=== PATIENT | female | born 1945 | race Caucasian/White ===

== ENCOUNTER → 2024-01-18 10:55 | Outpatient (REF) | payer OTHER, SELFPAY | LOC: RAD 10:55 | PROVIDERS: ATTENDING PHYSICIAN Internal Medicine | DX: R62.7 Adult failure to thrive (principal); I89.1 Lymphangitis | CPT/HCPCS: 71250 ==

== ENCOUNTER 2024-07-22 18:25 | Inpatient (IN) | payer OTHER, SELFPAY ==
[2024-07-22] VITALS (10 sets, daily range): BP systolic 101–167; BP diastolic 64–116; BMI 14.2
--- NOTE | 2024-07-22 14:56 | ED.GENMED ---
History of Present Illness
General
Chief Complaint: Facial Problem
Source: spouse
Exam Limitations: none
Time Seen by Provider: 07/22/24 13:31
Nursing documentation reviewed up to this point in time: agreed with
History of Present Illness
History of Present Illness:
The patient is an 78-year-old female brought in by her for disorientation and acute mental status change. Her reports she is generally well other than chronic lung disease. He reports that about 3 months ago she developed
trigeminal neuralgia in her left face. He reports she has never had this before and was evaluated and treated by neurology at [place]. He reports that initially she was started on a low-dose gabapentin without relief. He reports that this past
, which was 4 days ago, her left facial pain became severe and her neurologist started her on baclofen, as well as increased her Lamictal dose, and additionally restarted gabapentin 300 mg 3 times a day. He reports that since last night,
she has been extremely sleepy and disoriented. He reports she is barely able to walk. She is saying things that do not make sense and not eating or drinking. Her reports he is not sure if this is medication related or something else is
going on. The patient is mumbling and barely able to answer any simple questions or follow any commands. She appears cachectic.
Past History
Past History
ED Past Medical History: Other (Chronic lung disease)
ED Past Surgical History: Other
Social History
Tobacco: Non-smoker
Alcohol: None
Drug: None
Personal:
Living: with family
Employment: Other
Family History
Family History: Other
Review of Systems
Review of Systems
Allergies reviewed?: Yes
All Other Systems: ROS reviewed and negative except as documented in HPI and ROS
Constitutional: Reports fatigue
EENT: Reports other (Left-sided facial pain)
Respiratory: Reports no symptoms
Cardiac: Reports no symptoms
ABD/GI: Reports no symptoms
: Reports no symptoms
Musculoskeletal: Reports no symptoms
Skin: Reports no symptoms
Neurological: Reports other (Increased confusion and lethargy)
Endocrine: Reports no symptoms
Hematologic/Lymphatic: Reports no symptoms
Psychiatric: Reports other (Confused, less interactive)
Phy Exam
Physical Exam
Physical Exam:
Physical Exam
General: no apparent distress, lethargic, cachectic appearing, very sleepy, awakens to touch and then falls back to sleep
Neck: supple. no meningeal signs. Dry mucous membrane
Heart: s1/s2 regular rate and rhythm, no murmur. equal radial pulses.
Lungs: no acute respiratory distress. clear bilaterally
Abdomen: Soft, nontender
Neuro: alert, disoriented to place and time. At times is able to say her name. Face appears symmetric and moves all extremities equally
Skin: no rash
Psychiatric: well kept. Barely interactive
Extremities: no edema.
Course
Orders/Labs/Results
Orders:
Orders
07/22/24 14:13
Electrocardiogram (*1) Urgent
Reason for Study: Fatigue / Weakness
EKG- Treatment ONCE
07/22/24 14:15
CT Head W/o Iv Contrast Urgent
Comment:
Reason For Exam: MS change, disoriented
0.9% Sodium Chloride 500 ml [Nss] 500 ml IV BOLUS
07/22/24 14:52
Complete Blood Count/With Diff Urgent
Comprehensive Metabolic Panel Urgent
Lactic Acid Urgent
Lamictal [Lamotrigine (Lamictal)] [S] Urgent
Venous Blood Gas Urgent
%Oxygen/Room Air: 2L nasal oxugen
07/22/24 15:07
Urinalysis Reflex To Culture Urgent
Date Specimen was Collected: 07/22/24
Time Specimen was Collected: 15:04
Urine Microscopic Reflex Cult Urgent
Abnormal Lab Results
07/22/24 07/22/24
14:52 15:07
MCH 31.6 H pg
(27.0-31.0)
MCHC 32.9 L g/dL
(33.0-37.0)
Absolute Lymphs (auto) 0.9 L 10^3/uL
(1.2-3.4)
Lymphocytes % 16.7 L %
(20.5-51.1)
VBG pCO2 63 H mmHg
(35-48)
VBG HCO3 39.0 H mmol/L
(22-27)
Carbon Dioxide 39 H mmol/L
(22-30)
BUN 21 H mg/dl
(7-17)
Glucose 111 H mg/dl
(70-99)
Calcium 11.4 H mg/dl
(8.4-10.2)
Urine Ketones 1+ A
(Negative)
Urine Bacteria (Reflex) Few A
(Negative)
Urine Albumin (Reflex) 2+ A
(Neg - Trace)
07/22/24 14:52
07/22/24 14:52
Vital Signs
Initial and Last Documented VS:
Initial Vital Signs
Temp Pulse Resp BP Pulse Ox
98.9 F 90 22 147/92 95
07/22/24 13:03 07/22/24 13:03 07/22/24 13:03 07/22/24 13:03 07/22/24 13:03
Last Documented Vital Signs
Temp Pulse Resp BP Pulse Ox
98.9 F 87 31 167/88 100
07/22/24 13:03 07/22/24 16:10 07/22/24 16:10 07/22/24 16:10 07/22/24 16:10
MDM/Problems Addressed
Differential Diagnosis Includes:
Intracranial hemorrhage, hyponatremia, subclinical seizure, sedation from medication
MDM/Problems Addressed:
Patient presents with acute lethargy and confusion
Chronic conditions affecting care:
Lung condition
Acute Exacerbation and/or Progression of Chronic Illness:
Patient may have acute exacerbation of her lung condition causing high CO2 levels
*Radiology
Radiology exam reviewed: radiology read reviewed
*Pulse Oximetry
Patient hypoxic: no
*Heat Treat Operator Interpretation
Rate: normal
Interpretation: normal
Rhythm: sinus
*Critical Care Note
Total Time (30-74mins, 75-104mins- exclusive of procedures): Not Applicable
Data Reviewed
Review of Other/Old Records Reveals: Testing (Swallow and speech testing shows no significant abnormalities in 2021)
ED Attending Note
-
Portions of this chart may have been created with voice recognition software.� Occasional wrong word or��sound alike� substitutions may have occurred due to the inherent limitations of voice recognition software.
Discharge Plan
Departure
Patient Disposition: Admit
Date of Disposition: 07/22/24
Time of Disposition: 16:47
Admit to: Med/Surg
Presentation/result/management discussed w/ accepting MD/DO: Hospitalist
Patient with high blood pressure during this ER visit?: Yes
Condition: Fair
Covid-19: Not Applicable
Discharge Problem:
Acute alteration in mental status
Referrals:
Ishmael Colmenares MD [Family Provider] -
Interventions
Interventions:
*Risk Screen - Suicide Last Done: 07/22/24 13:17
*General Assessment Last Done: 07/22/24 13:42
*Neglect/Abuse Screening Last Done: 07/22/24 13:17
*ED COVID-19 Vaccine History Last Done: 07/22/24 13:42
ED- Neurological Assessment Last Done: 07/22/24 13:17
ED-Skin Assessment Last Done: 07/22/24 13:19
Discharge Date and Time
Print Language: BELARUSIAN
[2024-07-22 15:00] LABS: Venous Blood Gas B.E. 11.2 mmol/L (-4 to +4); Venous Blood Gas pCO2 63 mmHg (35-48); Venous Blood Gas pO2 38 mmHg (30-50)
[2024-07-22 15:04] LABS: % Basophils 0.6 % (0-2); % Eosinophils 0.2 % (0-6); % Immature Granulocytes 0.4 % (0-0.5); % Lymphocytes 16.7 % (20.5-51.1); % Monocytes 8.9 % (1.7-9.3); % Neutrophils 73.2 % (42.2-75.2); Absolute Lymphocytes 0.9 10^3/uL (1.2-3.4); Absolute Monocytes 0.5 10^3/uL (0.1-0.6); Absolute Neutrophils 3.9 10^3/uL (1.4-6.5); Hematocrit 44.4 % (37.0-47.0); Hemoglobin 14.6 g/dL (12.0-16.0); Mean Corp Hgb Conc. 32.9 g/dL (33.0-37.0); Mean Corpuscular Hgb 31.6 pg (27.0-31.0); Mean Corpuscular Volume 96.1 fL (81.0-99.0); Mean Platelet Volume 8.9 fL (7.4-10.4); Nucleated Red Blood Cells % 0 %; Platelet Count 238 10^3/uL (130-400); Red Blood Cell Count 4.62 10^6/uL (4.20-5.40); Red Cell Dist. Width 13.3 % (11.5-14.5); Venous Blood Gas O2 Therapy 2L nasal oxugen; White Blood Cell Count 5.3 10^3/uL (4.8-10.8)
[2024-07-22] MEDS: NSS 500 IV (15:05)
[2024-07-22 15:13] LABS: Lactic Acid 1.1 mmol/L (0.7-2.0)
[2024-07-22 15:15] LABS: ALT (SGPT) 28 U/L (0-35); AST (SGOT) 34 U/L (14-36); Albumin 4.5 g/dl (3.5-5.0); Alkaline Phosphatase 76 U/L (38-126); Blood Urea Nitrogen 21 mg/dl (7-17); Calcium 11.4 mg/dl (8.4-10.2); Carbon Dioxide 39 mmol/L (22-30); Chloride 99 mmol/L (98-107); Estimated Creatinine Clearance 43 ml/min; Glucose 111 mg/dl (70-99); Potassium 4.2 mmol/L (3.5-5.1); Sodium 141 mmol/L (135-145); Total Bilirubin 0.4 mg/dl (0.2-1.3); Total Protein 7.6 g/dl (6.3-8.2); eGFR > 60.00
[2024-07-22 15:17] LABS: Urine Albumin 2+ (Neg - Trace); Urine Bilirubin Negative (Negative); Urine Character Slightly Cloudy (Clear); Urine Color Yellow; Urine Glucose Negative (Negative); Urine Ketone 1+ (Negative); Urine Leukocyte Negative (Negative); Urine Nitrite Negative (Negative); Urine Occult Blood Negative (Negative); Urine Urobilinogen Negative (Neg - 1+)
--- NOTE | 2024-07-22 15:18 | EDRN ---
Pt more awake and alert at this time.
--- NOTE | 2024-07-22 15:22 | EDRN ---
Pt incontinent in diaper of very large amount of malodorous urine.
[2024-07-22 15:28] LABS: Urine Bacteria Few (Negative); Urine Red Blood Cell 0-2 /HPF (0-2); Urine White Cell 0-2 /HPF (0-5)
--- NOTE | 2024-07-22 16:52 | EDRN ---
Spouse and pt's friend have returned to room. Pt is awaiting to be admitted at this time.
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
--- NOTE | 2024-07-22 17:58 | HPS.HSE ---
Family Physician
-
Family Physician: Ishmael Colmenares
Chief Complaint
-
AMS
History of Present Illness
78-year-old female with a past medical history of lymphangioleiomyomatosis, pneumothorax, osteoporosis, COPD, hyperparathyroidism, osteoarthritis, and trigeminal neuralgia presents with altered mental status. Per , patient saw a neurologist
at [place], and was started her on gabapentin 300 mg 3 times a day on 07/20/2024. Since then, she has started becoming confused, not eating, not drinking, not talking. She has severe pain from her trigeminal neuralgia, which impairs her
ability to eat and take pills. does report that the confusion, lethargy, somnolence, and not talking normally occurred since starting the gabapentin. states that the starting dose of gabapentin was 300 mg 3 times a day. At that
time, Lamictal was also increased. Patient was initially on 150 mg in the morning, 100 at night. This was increased to 150 twice a day. Currently, patient denies pain. denies fever.
Medical History
Past Medical History
Past Medical History: Reports Other
Additional Past Medical History:
Lymphangioleiomyomatosis
Pneumothorax
Trigeminal neuralgia
Osteoporosis
COPD
Primary hyperparathyroidism
Left knee osteoarthritis
Past Surgical History: Reports Other
Additional Past Surgical History:
Pleurodesis
Social History
Tobacco: Non-smoker
Alcohol: Occasional
Drug: None
Personal:
Living: With Family
Family History
Family History: Not pertinent
Allergies / Home Medications
Allergies reflects when Allergies were last updated in [facility].
Home Medications with original date entered in [facility]
Allergy/Medication List:
Allergies
Allergy/AdvReac Type Severity Reaction Status Date / Time
No Known Allergies Allergy Unverified 07/22/24 13:02
Home Medications Table - record
�Medication �Instructions �Recorded �Confirmed
amitriptyline 10 mg tablet 10 mg PO HS 07/22/24 07/22/24
cholecalciferol (vitamin D3) 25 25 mcg PO DAILY 07/22/24 07/22/24
mcg (1,000 unit) tablet (Vitamin
D3)
gabapentin 300 mg capsule 300 mg PO TID 07/22/24 07/22/24
lamotrigine 100 mg tablet 150 mg PO BID 07/22/24 07/22/24
therapeutic multivitamin 1 tab PO DAILY 07/22/24 07/22/24
Review of Systems
-
History Source: Family
A 12 point ROS was completed and negative except as noted: Yes
Physical Exam
Vital Signs
Vital Signs
Temp Pulse Resp BP Pulse Ox
98.9 F 93 20 167/89 97
07/22/24 13:03 07/22/24 17:30 07/22/24 17:45 07/22/24 17:03 07/22/24 17:45
Physical Exam
General: No Apparent Distress
HEENT: NormoCephalic, Anicteric and Atraumatic
Respiratory: Clear
Cardiac: S1/S2
GI: Soft, Non Tender and Non Distended
Musculoskeletal: No Clubbing, No Cyanosis and No Edema
Skin: Warm and Dry
Neuro: Other (Somnolent, slow to respond, unable to provide history)
Psych: Calm
Laboratory Results
-
07/22/24 14:52
07/22/24 14:52
Laboratory Results
Lactic Acid 1.1 mmol/L (0.7-2.0) 07/22/24 14:52
Total Bilirubin 0.4 mg/dl (0.2-1.3) 07/22/24 14:52
AST 34 U/L (14-36) 07/22/24 14:52
ALT 28 U/L (0-35) 07/22/24 14:52
Alkaline Phosphatase 76 U/L (38-126) 07/22/24 14:52
Impression/Plan
-
HPI: 78-year-old female with a past medical history of lymphangioleiomyomatosis, pneumothorax, osteoporosis, COPD, hyperparathyroidism, osteoarthritis, and trigeminal neuralgia presents with altered mental status. Per , patient saw a
neurologist at [place], and was started her on gabapentin 300 mg 3 times a day on 07/20/2024. Since then, she has started becoming confused, not eating, not drinking, not talking. She has severe pain from her trigeminal neuralgia, which
impairs her ability to eat and take pills. does report that the confusion, lethargy, somnolence, and not talking normally occurred since starting the gabapentin. states that the starting dose of gabapentin was 300 mg 3 times a day.
At that time, Lamictal was also increased. Patient was initially on 150 mg in the morning, 100 mg at night. This was increased to 150 twice a day. Currently, patient denies pain. denies fever.
#Acute encephalopathy, suspect drug-induced from gabapentin
Head CT negative
Likely from starting gabapentin 300 mg 3 times daily on 07/20/2024
Hold gabapentin, check B12, check TSH/free T4, monitor
#Severe trigeminal neuralgia
Hold gabapentin for now secondary to encephalopathy
Continue Lamictal 150 mg twice a day
Continue amitriptyline
Consult neurology
#Dehydration
IV fluids
#Lymphangioleiomyomatosis
Status post pleurodesis, outpatient follow-up
#Left knee arthritis
Tylenol as needed
DVT prophylaxis� SQLovenox
DNR confirmed with upon admission
Total time spent to see the patient on the floor, examine the patient, review data and lab results, discuss treatment plan with patient, nursing staff around 65 minutes.
--- NOTE | 2024-07-22 18:44 | EDRN ---
No Delay Report tubed to 4th floor East for room 402.1 at this time w/ call placed to floor and message left for RN who will care for pt.
[2024-07-22] MEDS: NSS 1000 IV (21:00)
[2024-07-22] MEDS: FLUSH (NSS) 1 FLUSH IV (21:19)
[2024-07-22] MEDS: ELAVIL 10 MG PO (21:22)
[2024-07-22] MEDS: LAMICTAL 150 MG PO (21:23)
[2024-07-23] MEDS: TYLENOL 650 MG PO ×3 (03:57→21:54)
--- NOTE | 2024-07-23 07:22 | CON.NEURO ---
Consultation
Order
Date of Consultation: 07/23/24
Requesting Provider: Dariel Roche MD
Reason for Consult: encephalopathy
Neurology Consultation Note.
HPI: This is an 78-year-old woman who presented to [facility] on July 22, 2024 with encephalopathy.
Ms. Marks endorses an intermittent sharp severe pain in the left V2�V3 distribution which has been ongoing for a couple of months. The patient reports difficulty and pain with chewing, brushing teeth, and touching the face. There is no
associated ear pain, tinnitus, or headache. The patient denies any preceding ear trauma, rash, ear pain, tinnitus, diplopia, dysphagia.
According to EMG the patient was started her on gabapentin 300 mg 3 times a day and Lamictal was increased from 150/100 to 150 mg twice daily on 07/20/2024.
According to patient's , left facial symptoms began approximately 3 months ago, affecting both the inside and outside of her face, with pain exacerbated by 'pressure or anything in her mouth'. Concurrently, the patient developed confusion,
which her reports as brand new since Tuesday, coinciding with initiation of gabapentin. The patient has been unable to eat since Tuesday due to pain
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
The patient's functional and cognitive status has declined since the onset of facial pain. She has not been driving for about 3 months and requires assistance with medication management using a weekly pillbox, which was not necessary prior to this
episode.
ER VS: 147/92-162/90, 90�104, 95% on 2 L O2, 37.2 c
EKG: Normal sinus rhythm,QTc Int : 454 ms
PDMP:none
Labs: Normal WBCs, sodium, GFR, magnesium, LFTs, lactic acid, glucose�111, UA�positive for ketones, bacteria negative for nitrates and LE
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
Brain MRI w/wo bard(11/21/2012) done for 'skull base trigeminal neuralgia' was unremarkable.
PMH: chronic hypoxic respiratory failure, lymphangioleiomyomatosis, COPD, hyperparathyroidism, osteoporosis, COPD, OA, BMI 14, vitamin D deficiency
PSH:pleurectomy
SH: , non-smoker, retired [employer], holds Master degree
FH: father-cancer;
All:NKDA
ROS: Constitutional: Negative. Negative for chills, fever and unexpected weight change.
HENT: Negative for ear pain, hearing loss, tinnitus and trouble swallowing.
Eyes: Negative. Negative for photophobia, pain and visual disturbance.
Respiratory: Negative for cough, choking and shortness of breath.
Cardiovascular: Negative for chest pain, palpitations and leg swelling.
Gastrointestinal: Negative for abdominal pain and vomiting.
Endocrine: Negative. Negative for cold intolerance.
Genitourinary: Negative for dysuria, flank pain and urgency.
Musculoskeletal: Negative for back pain, gait problem, neck pain and neck stiffness.
Skin: Negative for rash.
Allergic/Immunologic: Negative. Negative for immunocompromised state.
Neurological: Positive for intermittent facial pain, confusion
Psychiatric/Behavioral: Negative for behavioral problems, confusion and hallucinations.
General: Very slim
Cardio: Regular rate and rhythm without murmur. Extremities are without cyanosis or edema.
Neuro:
Mental Status: Awake, oriented to month, year, not to age, date of . Poor attention and impaired comprehension. Increased processing time. Follows simple requests. Nonfluent.
Cranial Nerves: Pupils are equally round and reactive to light. EOMs full. Visual arriaga full to confrontation. No ptosis. No nystagmus. V1-V3 intact to light touch and pinprick bilaterally, symmetric. Face symmetric. Normal hearing AU. The
palate elevated well. SCMs and traps 5/5. Tongue midline. No dysarthria.
Motor: Normal bulk and tone. No pronator or arm drift.
Reflexes: Negative grasp bilaterally
Sensory: Limited exam due to poor attention
Coordination: No tremors, clonic movement
Gait: deferred
Assessment and Plan:
I. Encephalopathy (toxic,? Neurodegenerative)
II. L V1-V2 trigeminal neuralgia, possible compressive
III. Severe bilateral TMJ DJD with a 1.2 x 0.5 cm effusion on the right
-Vit b12, TFTs
-Please follow-up Lamictal level
-Please obtain medical records from Tran Tirado MD
-Start Tegretol 100 mg BID
-Continue Lamictal 150 mg twice daily
-Dental consult
-Will follow-up
I personally reviewed all radiology and labs along with past medical records pertinent to current medical problems. Total time spent in patient care is 60 minutes.
Thank you for allowing us to participate in the care of this patient. We will continue to follow. Please do not hesitate to contact us with any questions or concerns.
Subjective/Objective
Subjective Data
Date of Service: July 23, 2024
Objective Data
Vital Signs
Temp Pulse Resp BP Pulse Ox
36.8 C 99 18 152/92 94
07/22/24 23:45 07/22/24 23:45 07/22/24 23:45 07/22/24 23:45 07/22/24 23:45
Lab Results
07/22/24 14:52
Sodium 141 mmol/L (135-145) 07/22/24 14:52
Potassium 4.2 mmol/L (3.5-5.1) 07/22/24 14:52
BUN 21 mg/dl (7-17) H 07/22/24 14:52
Glucose 111 mg/dl (70-99) H 07/22/24 14:52
Calcium 11.4 mg/dl (8.4-10.2) H 07/22/24 14:52
Patient Allergies
No Known Allergies Allergy (Unverified 07/22/24 13:02)
Medications
-
Active Medications
Generic Name Dose Route Start Last Admin
Trade Name Freq PRN Reason Stop Dose Admin
Acetaminophen 650 mg 07/22/24 19:39 07/23/24 03:57
Acetaminophen 325 Mg Tablet PO 08/19/24 19:38 650 mg
Q4HPRN PRN Administration
mild pain/HEADLEY/temp> 100.4F
Al Hydrox/Mg Hydrox/Simethicone 30 ml 07/22/24 19:39
Mag/Al/Simethicone Suspension 30 Ml Cup PO 08/19/24 19:38
Q6HPRN PRN
Heartburn
Amitriptyline HCl 10 mg 07/22/24 22:00 07/22/24 21:22
Amitriptyline 10 Mg Tablet PO 08/19/24 21:59 10 mg
HS LEISA Administration
Cholecalciferol 25 mcg 07/23/24 08:00
Cholecalciferol (Vitamin D3) 25 Mcg Tablet (1,000 Units) PO 08/20/24 07:59
DAILY LEISA
Heparin Sodium 5,000 units 07/23/24 08:00
Heparin 5,000 Units/Ml 1 Ml Vial SC 08/20/24 07:59
Q12 LEISA
Sodium Chloride 1,000 mls @ 50 mls/hr 07/22/24 19:39 07/22/24 21:00
Nss IV 1,000 mls
.Q20H LEISA Administration
Lamotrigine 150 mg 07/22/24 20:00 07/22/24 21:23
Lamotrigine 100 Mg Tablet PO 08/19/24 19:59 150 mg
BID LEISA Administration
Ondansetron HCl 4 mg 07/22/24 19:39
Ondansetron 4 Mg/2 Ml Vial IV 08/19/24 19:38
Q6HPRN PRN
nausea and vomiting
Oxycodone HCl 5 mg 07/22/24 19:39
Oxycodone 5 Mg Regular Release Tablet PO 08/05/24 19:38
Q4HPRN PRN
moderate pain
Sodium Chloride 0 flush 07/22/24 20:00 07/22/24 21:19
Sodium Chloride 0.9% (Flush) Syringe IV 08/19/24 19:59 1 flush
PER PROTOCOL LEISA Administration
Home Medications
�Medication �Instructions �Recorded
amitriptyline 10 mg tablet 10 mg PO HS 07/22/24
cholecalciferol (vitamin D3) 25 25 mcg PO DAILY 07/22/24
mcg (1,000 unit) tablet (Vitamin
D3)
gabapentin 300 mg capsule 300 mg PO TID 07/22/24
lamotrigine 100 mg tablet 150 mg PO BID 07/22/24
therapeutic multivitamin 1 tab PO DAILY 07/22/24
Vital Signs and Labs
-
Vital Signs and Labs:
Vital Signs
Temp Pulse Resp BP Pulse Ox
36.8 C 99 18 152/92 94
07/22/24 23:45 07/22/24 23:45 07/22/24 23:45 07/22/24 23:45 07/22/24 23:45
Lab Results
07/22/24 14:52
07/23/24 05:38
Sodium 142 mmol/L (135-145) 07/23/24 05:38
Potassium 3.7 mmol/L (3.5-5.1) 07/23/24 05:38
BUN 15 mg/dl (7-17) 07/23/24 05:38
Glucose 92 mg/dl (70-99) 07/23/24 05:38
Calcium 9.8 mg/dl (8.4-10.2) D 07/23/24 05:38
Medications
-
Medications:
Generic Name Dose Route Start Last Admin
Trade Name Freq PRN Reason Stop Dose Admin
Acetaminophen 650 mg 07/22/24 19:39 07/23/24 03:57
Acetaminophen 325 Mg Tablet PO 08/19/24 19:38 650 mg
Q4HPRN PRN Administration
mild pain/HEADLEY/temp> 100.4F
Al Hydrox/Mg Hydrox/Simethicone 30 ml 07/22/24 19:39
Mag/Al/Simethicone Suspension 30 Ml Cup PO 08/19/24 19:38
Q6HPRN PRN
Heartburn
Amitriptyline HCl 10 mg 07/22/24 22:00 07/22/24 21:22
Amitriptyline 10 Mg Tablet PO 08/19/24 21:59 10 mg
HS LEISA Administration
Cholecalciferol 25 mcg 07/23/24 08:00
Cholecalciferol (Vitamin D3) 25 Mcg Tablet (1,000 Units) PO 08/20/24 07:59
DAILY LEISA
Heparin Sodium 5,000 units 07/23/24 08:00
Heparin 5,000 Units/Ml 1 Ml Vial SC 08/20/24 07:59
Q12 LEISA
Sodium Chloride 1,000 mls @ 50 mls/hr 07/22/24 19:39 07/22/24 21:00
Nss IV 1,000 mls
.Q20H LEISA Administration
Lamotrigine 150 mg 07/22/24 20:00 07/22/24 21:23
Lamotrigine 100 Mg Tablet PO 08/19/24 19:59 150 mg
BID LEISA Administration
Ondansetron HCl 4 mg 07/22/24 19:39
Ondansetron 4 Mg/2 Ml Vial IV 08/19/24 19:38
Q6HPRN PRN
nausea and vomiting
Oxycodone HCl 5 mg 07/22/24 19:39
Oxycodone 5 Mg Regular Release Tablet PO 08/05/24 19:38
Q4HPRN PRN
moderate pain
Sodium Chloride 0 flush 07/22/24 20:00 07/22/24 21:19
Sodium Chloride 0.9% (Flush) Syringe IV 08/19/24 19:59 1 flush
PER PROTOCOL LEISA Administration
Home Medications
-
Home Medications
amitriptyline 10 mg tablet 10 mg PO HS 07/22/24
cholecalciferol (vitamin D3) 25 mcg (1,000 unit) tablet (Vitamin D3) 25 mcg PO DAILY 07/22/24
gabapentin 300 mg capsule 300 mg PO TID 07/22/24
lamotrigine 100 mg tablet 150 mg PO BID 07/22/24
therapeutic multivitamin 1 tab PO DAILY 07/22/24
[2024-07-23 07:25] VITALS: BP 164/93
[2024-07-23 07:29] LABS: Blood Urea Nitrogen 15 mg/dl (7-17); Calcium 9.8 mg/dl (8.4-10.2); Carbon Dioxide 34 mmol/L (22-30); Chloride 104 mmol/L (98-107); Estimated Creatinine Clearance 34 ml/min; Glucose 92 mg/dl (70-99); Potassium 3.7 mmol/L (3.5-5.1); Sodium 142 mmol/L (135-145); eGFR > 60.00
[2024-07-23 07:59] LABS: TSH Reflex To Free T4 1.52 uIU/ml (0.47-4.68)
[2024-07-23 08:18] LABS: Vitamin B12 733 pg/ml (239-931)
[2024-07-23] MEDS: HEPARIN 5000 UNITS SC ×2 (09:14→19:43)
[2024-07-23] MEDS: LAMICTAL 150 MG PO ×2 (09:15→19:43)
[2024-07-23] MEDS: VITAMIN D3 (cholecalciferol) PO ×2 (09:20→09:27)
[2024-07-23 10:16] VITALS: BP 114/78; PULSE 93; O2SAT 97
[2024-07-23 12:08] VITALS: BMI 14.2
--- NOTE | 2024-07-23 12:13 | PTOTSP ---
Speech Therapy Evaluation:
Pt presents with clinical signs of oropharyngeal dysphagia, likely chronic in nature related to hx of lymphangioleiomyomatosis, COPD, and severe trigeminal neuralgia, compounded by current mentation/encephalopathy. Pt with oral stage deficits
including impaired bolus retrieval, groping, and prolonged/discoordinated bolus formation. No s/sx of aspiration at bedside, however 3oz swallow screen deferred and no chest imaging completed thus far. VSE completed in 2021 with oropharyngeal
swallow that was WFL with recommendations for regular/thin liquid diet. Suspect improvement in swallow function as mentation improves.
Recommend:
1. Diet downgrade to IDDSI Level 5 (minced and moist); continue thin liquids
2. Medications whole in thin liquid per pt preference as able
3. 1:1 assistance and supervision
4. Strict aspiration precautions
5. AGRICULTURAL AND FORESTRY SUPERVISOR to follow to monitor tolerance of current diet level, determine need for further diet modifications or advancements, and determine if repeat VSE warranted.
--- NOTE | 2024-07-23 12:21 | W.PN.HOSP.TC ---
Addendum entered and electronically signed by David Montejo DO 07/23/24 12:31:
Seen and examined at the bedside. No acute events overnight. AFVSS on 2 L oxygen with SpO2 mid 90s. Patient denies any pain related to her trigeminal neuralgia at time of my evaluation. Does seem confused, AAO x 2 at present.
NAD, AAO x 2
CTA, nonlabored, good inspiratory effort
RRR, no M/G/R, normal S1 and S2
Benign abdomen
No lower extremity edema, 2+ pulses
Original Note:
Today's Communication/Plan
-
Hold sedating agents
Monitor MSE
Wean oxygen
IDDSI 5 and aspiration precaution
Assessment / Plan
Assessment / Plan
#Acute encephalopathy
-Suspect drug-induced from gabapentin which was initiated on 07/20/2024
-Head CT negative for ICH or mass effect; no obvious focal neurological deficits on exam
-Metabolic workup including B12, thyroid function testing were within normal limits
-Gabapentin was held on arrival, still seems to be confused this morning
-Hold sedating agents and trend MSE
-Consider MRI brain/EEG at neurology discretion
#Severe trigeminal neuralgia
-Home regimen includes Lamictal, amitriptyline, gabapentin (just added)
-Was resumed on Lamictal and amitriptyline on arrival, gabapentin held
-As of this morning patient states she is not in pain, though persistently grabs at left side of face
-Hold gabapentin for now secondary to encephalopathy
-Consult neurology, may require CN V decompression if symptoms worsen
#Acute hypoxemic respiratory insufficiency
-Currently on 2 L oxygen with SpO2 in the mid to high 90s
-Question if she had aspiration event GROUP SEGMENT CONSULTANT
-No signs of COPD exacerbation
-Wean oxygen for SpO2 >90%
#Dehydration
-IV fluids
#Lymphangioleiomyomatosis
#H/O PTX
-Status post pleurodesis, outpatient follow-up
#Primary hyperparathyroidism
-Calcium was elevated on arrival though now WNL after fluid
-Trend BMP
#COPD
-Noted per history; Home medications do not include any inhalers or nebulizer
-No recent PFTs available to review, last CT without emphysematous changes
#Left knee osteoarthritis
-Tylenol as needed
DVT prophylaxis: Lovenox
Diet: IDDSI 5 per PIECE WORK CHECKER team
DNR confirmed with upon admission
Anticipated Discharge: 24 - 48 hours
Subjective/Interval History
-
Date of Service: July 23, 2024
Objective Data
-
Labs:
Laboratory Results
07/23/24
05:38
Sodium 142
Potassium 3.7
Chloride 104
Carbon Dioxide 34 H
BUN 15
Creatinine 0.7
Glucose 92
Calcium 9.8 D
Vital Signs:
Vital Signs
Temp Pulse Resp BP Pulse Ox
98.5 F 92 18 164/93 97
07/23/24 07:25 07/23/24 07:25 07/23/24 07:25 07/23/24 07:25 07/23/24 07:25
I&O
07/22/24 07/23/24 07/24/24
06:59 06:59 06:59
Intake Total 120 / 120
Output Total 50 / 50
Balance 70 / 70
[2024-07-23 15:18] VITALS: BP 153/86
[2024-07-23] MEDS: NSS 1000 IV (16:15)
--- NOTE | 2024-07-23 16:32 | CM ---
Patient seen at bedside with and friend, Roshni. Patient lives in a one story home with . Patient PCP is and [facility]. Patient plan is for discharge to SNF. Patient is on O2 in hospital but not at home. CM will
continue to follow for discharge planning needs.
Plan; SNF
Patient cell phone [phone]
--- NOTE | 2024-07-23 16:45 | PTCARENOTE ---
Received patient this am AAOx1. Pt confused. Pt's appetite poor. IVF infusing without difficulty. OOB to chair an tolerated well. Pt off unit for MRI today. Pt complained of pain on Left Jaw. Medicated with Tylenol with moderate relief. Pt
refusing to take Roxicodone for pain control. Made patient comfortable. Cont to assess patient status.
[2024-07-23] MEDS: TEGRETOL CHEWABLE 100 MG PO (19:43)
[2024-07-23] MEDS: ELAVIL 10 MG PO (21:53)
[2024-07-23 23:14] VITALS: BP 144/86
[2024-07-24] MEDS: TYLENOL 650 MG PO ×2 (03:03→13:01)
[2024-07-24 06:30] LABS: % Basophils 1.2 % (0-2); % Eosinophils 1.2 % (0-6); % Immature Granulocytes 0.2 % (0-0.5); % Lymphocytes 27.9 % (20.5-51.1); % Monocytes 12.4 % (1.7-9.3); % Neutrophils 57.1 % (42.2-75.2); Absolute Basophils 0.1 10^3/uL (0-0.2); Absolute Eosinophils 0.1 10^3/uL (0-0.7); Absolute Lymphocytes 1.2 10^3/uL (1.2-3.4); Absolute Monocytes 0.5 10^3/uL (0.1-0.6); Absolute Neutrophils 2.4 10^3/uL (1.4-6.5); Hematocrit 38.2 % (37.0-47.0); Hemoglobin 12.2 g/dL (12.0-16.0); Mean Corp Hgb Conc. 31.9 g/dL (33.0-37.0); Mean Corpuscular Hgb 31.4 pg (27.0-31.0); Mean Corpuscular Volume 98.2 fL (81.0-99.0); Mean Platelet Volume 9.7 fL (7.4-10.4); Nucleated Red Blood Cells % 0 %; Platelet Count 206 10^3/uL (130-400); Red Blood Cell Count 3.89 10^6/uL (4.20-5.40); White Blood Cell Count 4.3 10^3/uL (4.8-10.8)
[2024-07-24 07:01] LABS: Blood Urea Nitrogen 16 mg/dl (7-17); Calcium 9.7 mg/dl (8.4-10.2); Carbon Dioxide 33 mmol/L (22-30); Chloride 103 mmol/L (98-107); Estimated Creatinine Clearance 34 ml/min; Glucose 92 mg/dl (70-99); Magnesium 1.9 mg/dl (1.6-2.3); Potassium 3.9 mmol/L (3.5-5.1); Sodium 138 mmol/L (135-145); eGFR > 60.00
[2024-07-24 07:10] VITALS: BP 170/89
--- NOTE | 2024-07-24 08:10 | PN.CDI ---
CDI
- -
CDI:
Physician Documentation Request
Admit Date: 07/22/24 18:25
Dear Doctor Gustabo,
Patient admitted for change of mental status.
07/23 Hospitalist PN: 'Acute encephalopathy
-Suspect drug-induced from gabapentin which was initiated on 07/20/2024'
Please specify the known or suspected type of the documented encephalopathy:
Toxic
Toxic metabolic
Metabolic
Due to a specified condition (such as UTI, hyponatremia, CVA etc)
Other
Use of terms such as suspected, likely, concern for, or probable (associated with a specific diagnosis that is being evaluated, monitored, or treated as if it exists) are acceptable and can be coded in the inpatient setting, when documented at the
time of discharge.
Thank you,
Xochitl Molina RN, BSN
CDI Specialist
Available via [place] text
Please use your independent medical judgment in providing your response.
--- NOTE | 2024-07-24 08:16 | PN.CDI ---
CDI
- -
CDI:
Physician Documentation Request
Admit Date: 07/22/24 18:25
Dear Doctor Gustabo,
Patient admitted for change of mental status.
07/23 Plant Controls Specialist: 'Pt observed with poor <25% intake for breakfat meal. Pt was confused at time of assessment and not able to discuss diet/wt hx. CBW (07/22) 75lb 2oz BMI 14.2 underwt/ht Skin intact. Meds and Labs reviewed. Pt meets criteria
for severe protein calorie malnutrition of chronic illness with prolonged inadequate intake prior to hospital admit <75% x >1 month, severe loss subcutaneous fat (orbital, tricep) and severe loss muscle (temporal).'
Based on the above information and your assessment, which of the following most accurately represents the patient's nutritional status?
Severe protein calorie malnutrition
Other (please specify)
Unable to determine
[place] Criteria ([facility] Hospitalist 2017)
2 or more criteria must be present for either
non severe or severe malnutrition
Note that the criteria differs related to the
presence of an acute or chronic illness
Acute Illness Chronic Illness
Energy Intake Non Severe: <75% for >7 days Non Severe: <75% for >1 month
Severe: <50% for >5 days Severe: <75% for >1 month
Weight Loss Non Severe: 1-2% over 1 week Non Severe: 5% over 1 month
5% over 1 month 7.5% over 3 months
7.5% over 3 months 10% over 6 months
1 year N/A 20% over 1 year
Severe: >2% over 1 week Severe: >5% over 1 month
>5% over 1 month >7.5% over 3 months
>7.5% over 3 months >10% over 6 months
1 year N/A >20% over 1 year
Body Fat Non Severe: Mild Decrease Non Severe: Mild Loss
Severe: Moderate Decrease Severe: Severe Loss
Muscle Mass Non Severe: Mild Decrease Non Severe: Mild Loss
Severe: Moderate Decrease Severe: Severe Loss
Fluid Accumulation Non Severe: Mild Accumulation Non Severe: Mild Accumulation
Severe: Moderate to severe Severe: Moderate to severe
accumulation accumulation
Reduced Bag End Sewer Strength Non Severe: N/A Non Severe: N/A
Severe: Measurably reduced Severe: Measurably reduced
Additional criteria that can be used to Determine if Mild or Moderate Malnutrition (Merck Manual 2018)
Mild Moderate Severe
Albumin gm/dl <3.0 gm/dl <2.5 gm/dl <2.0 gm/dl
Pre Albumin mg/dl <15 gm/dl <10 mg/dl <5.0 mg/dl
BMI <18.5 <17 <16
Use of terms such as suspected, likely, concern for, or probable (associated with a specific diagnosis that is being evaluated, monitored, or treated as if it exists) are acceptable and can be coded in the inpatient setting, when documented at the
time of discharge.
Thank you,
Xochitl Molina RN, BSN
CDI Specialist
Available via [place] text
Please use your independent medical judgment in providing your response.
[2024-07-24 09:02] LABS: Lamotrigine (Lamictal) 1.9 ug/mL (3.0-15.0)
[2024-07-24] MEDS: HEPARIN 5000 UNITS SC ×2 (09:26→19:35)
[2024-07-24] MEDS: LAMICTAL 150 MG PO ×2 (09:26→19:35)
[2024-07-24] MEDS: TEGRETOL CHEWABLE 100 MG PO ×2 (09:27→19:35)
[2024-07-24] MEDS: VITAMIN D3 (cholecalciferol) 25 MCG PO (09:27)
--- NOTE | 2024-07-24 11:25 | W.PN.HOSP.TC ---
Addendum entered and electronically signed by David Montejo DO 07/24/24 17:43:
CDI: Toxic metabolic encephalopathy 2/2 gabapentin effects
Original Note:
Today's Communication/Plan
-
Hold gabapentin and monitor MSE
Continue with carbamazepine
Hold unnecessary sedatives
Follow-up Lamictal level
Ensure with meals/modified diet
Assessment / Plan
Assessment / Plan
#Acute encephalopathy
-Suspect drug-induced from gabapentin which was initiated on 07/20/2024
-Head CT negative for ICH or mass effect; no obvious focal neurological deficits on exam
-Metabolic workup including B12, thyroid function testing were within normal limits
-Gabapentin was held on arrival, still seems to be confused this morning
-Hold sedating agents and trend MSE
-Seems to be improving
#Severe trigeminal neuralgia
-Home regimen includes Lamictal, amitriptyline, gabapentin (just added)
-Was resumed on Lamictal and amitriptyline on arrival; gabapentin held
-Mental status has improved with holding gabapentin, AAOx4 this morning
-Consulted neurology, started carbamazepine 100 mg chewable twice daily
-May require CN V decompression if symptoms worsen
#Acute hypoxemic respiratory insufficiency
-Currently on 2-3 L oxygen with SpO2 in near 100%
-Question if she had aspiration event EXPENDITURE REQUISITION CLERK
-No signs of COPD exacerbation
-Wean oxygen for SpO2 >90%
#Dehydration
-Seems to be improving with IV fluid
-Patient eating and drinking as well, tolerated full breakfast
#Lymphangioleiomyomatosis
#H/O PTX
-Status post pleurodesis, outpatient follow-up
#Primary hyperparathyroidism
-Calcium was elevated on arrival though now WNL after fluid
-Trend BMP
#COPD
-Noted per history; Home medications do not include any inhalers or nebulizer
-No recent PFTs available to review, last CT without emphysematous changes
#Left knee osteoarthritis
-Tylenol as needed
#Severe protein calorie malnourishment
-BMI 14.2; likely due to to chronic trigeminal neuralgia/TMJ related pain affecting her eating
-Will start Ensure with meals, suspect modified diet may improve intake
-OP follow-up with stock shaper
DVT prophylaxis: Lovenox
Diet: IDDSI 5 per DIRECTOR OF COLLECTIONS team
DNR confirmed with upon admission
Anticipated Discharge: 24 - 48 hours
Subjective/Interval History
-
Date of Service: July 24, 2024
Seen and examined at the bedside. No acute events reported overnight. AFVSS as of this morning
Her mentation seems improved and she is AAOx4, with some hesitancy, compared with AAO x 2 yesterday. Lamictal level pending
Denies any trigeminal neuralgia related pain this morning. Denies any other new acute complaints
Objective Data
-
Labs:
Laboratory Results
07/24/24
05:35
WBC 4.3 L
Hgb 12.2
Hct 38.2
Plt Count 206
Sodium 138
Potassium 3.9
Chloride 103
Carbon Dioxide 33 H
BUN 16
Creatinine 0.7
Glucose 92
Calcium 9.7
Vital Signs:
Vital Signs
Temp Pulse Resp BP Pulse Ox
98 F 93 18 170/89 100
07/24/24 07:10 07/24/24 07:10 07/24/24 07:10 07/24/24 07:10 07/24/24 07:10
I&O
07/23/24 07/24/24 07/25/24
06:59 06:59 06:59
Intake Total 120 / 120 760 / 760 240 / 240
Output Total 50 / 50
Balance 70 / 70 760 / 760 240 / 240
Review of Systems
-
History Source: Patient
All other systems: Reviewed and negative
Physical Exam
-
General: Well Developed, No Apparent Distress, Comfortable and Cachectic
HEENT: Normocephalic, Atraumatic and Moist Mucous Membranes
Respiratory: Clear to Auscultation and Non Labored Respirations
Cardiac: Regular Rhythm and S1/S2; Negative Murmur, Rub or Gallop
GI: Soft, Nontender, Nondistended and Normal Bowel Sounds
Musculoskeletal: No Clubbing, No Cyanosis and No Edema
Skin: Warm, Dry and Normal Turgor; Negative Rash
Neuro: AO x 3 and Nonfocal/Grossly Intact
Psych: Calm
Data Reviewed
-
Labs: Labs Reviewed by me and Discussed with Patient
[2024-07-24 11:38] VITALS: BP 147/81
[2024-07-24] MEDS: NSS 1000 IV (13:01)
--- NOTE | 2024-07-24 14:42 | PTOTSP ---
ST Follow-Up
Pt continues to present with limited ability to consume advanced solid consistencies due to severe trigeminal neuralgia pain during mastication - pt does not demonstrate any physiological deficits, per say, but rather inability to tolerate pain
during mastication of advnaced solids. No overt s/s of penetration or aspiration noted at bedside.
Recommendations:
- Continue with minced and moist solids, thin liquids, meds as tolerated. Can upgrade diet at pt's request at MD's discretion if/when pt's trigeminal pain becomes more controlled.
- General aspiration precautions.
- RECREATIONAL THERAPY TECHNICIAN to sign off, as skilled acute dysphagia services are deemed not indicated at this time.
[2024-07-24 15:44] VITALS: BP 171/86
[2024-07-24 16:07] VITALS: BP 156/95; PULSE 98; O2SAT 99
--- NOTE | 2024-07-24 17:51 | W.PN.NEURO.1 ---
Today's Communication / Plan
-
.
Subjective/Objective
Subjective Data
Date of Service: July 24, 2024
Neurology Follow Up Note.
Ms. Marks mentioning the presence of her who is not actually there, and expressing fear related to her inability to swim that he is reportedly requesting to do.
It is unclear if her facial pain improved after initiation of Tegretol.l The pain is exacerbated when she 'lets go' her left hand that she hold on her left face. The pain is alleviated when she holds her hand on her face. She reports difficulty with
oral hygiene, stating she cannot brush her teeth due to pain.
She reprotedly has developed a compensatory mechanism of drinking small amounts of water and turning her head to the right side to facilitate swallowing.
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 right SLIVER LAP MACHINE TENDER.
Brain MRI w/wo brad(11/21/2012) done for 'skull base trigeminal neuralgia' was unremarkable.
Routine EEG(07/24/2023) mild generalized slowing
Lamictal level�1.9 (3�15), B12, TFTs�unremarkable
PMH: chronic hypoxic respiratory failure, lymphangioleiomyomatosis, COPD, hyperparathyroidism, osteoporosis, COPD, OA, BMI 14, vitamin D deficiency
PSH:pleurectomy
SH: , non-smoker, retired [employer], holds Master degree
FH: father-cancer
All:NKDA
ROS: Constitutional: Negative. Negative for chills, fever and unexpected weight change.
HENT: Negative for ear pain, hearing loss, tinnitus and trouble swallowing.
Eyes: Negative. Negative for photophobia, pain and visual disturbance.
Respiratory: Negative for cough, choking and shortness of breath.
Cardiovascular: Negative for chest pain, palpitations and leg swelling.
Gastrointestinal: Negative for abdominal pain and vomiting.
Endocrine: Negative. Negative for cold intolerance.
Genitourinary: Negative for dysuria, flank pain and urgency.
Musculoskeletal: Negative for back pain, gait problem, neck pain and neck stiffness.
Skin: Negative for rash.
Allergic/Immunologic: Negative. Negative for immunocompromised state.
Neurological: Positive for intermittent facial pain, confusion
Psychiatric/Behavioral: Negative for behavioral problems, confusion and hallucinations.
General: Very slim
Cardio: Regular rate and rhythm without murmur. Extremities are without cyanosis or edema.
Neuro:
Mental Status: Awake, oriented to month, year. Poor attention and impaired comprehension. Increased processing time. Follows simple requests. Nonfluent.
Cranial Nerves: Pupils are equally round and reactive to light. EOMs full. Visual arriaga full to confrontation. No ptosis. No nystagmus. V1-V3 intact to light touch and pinprick bilaterally, symmetric. Face symmetric. Normal hearing AU. The
palate elevated well. SCMs and traps 5/5. Tongue midline. No dysarthria.
Motor: Normal bulk and tone. No pronator or arm drift.
Reflexes: Negative grasp bilaterally
Sensory: Limited exam due to poor attention
Coordination: No tremors, clonic movement
Gait: deferred
Assessment and Plan:
I. Encephalopathy, likely neurodegenerative)
II. L V1-V2 trigeminal neuralgia, possible compressive
III. Severe bilateral TMJ DJD with a 1.2 x 0.5 cm effusion on the right
-Vit b12, TFTs
-Please follow-up Lamictal level
-Please obtain medical records from Tran Tirado MD
-Tegretol 100 mg BID. Titrate to 200 mg twice daily as tolerated based on facial pain level and absence of side effects
-Continue Lamictal 150 mg twice daily
-Dental consult
-Outpatient MRA of the head and neurosurgery evaluation if pain is refractory
-Outpatient neurology follow-up
-Please recall neurology services any questions or concerns
I personally reviewed all radiology and labs along with past medical records pertinent to current medical problems. Total time spent in patient care is 37 minutes.
Thank you for allowing us to participate in the care of this patient. Please do not hesitate to contact us with any questions or concerns.
Objective Data
Vital Signs
Temp Pulse Resp BP Pulse Ox
36.7 C 86 18 171/86 100
07/24/24 15:44 07/24/24 15:44 07/24/24 15:44 07/24/24 15:44 07/24/24 15:44
Lab Results
07/24/24 05:35
07/24/24 05:35
Sodium 138 mmol/L (135-145) 07/24/24 05:35
Potassium 3.9 mmol/L (3.5-5.1) 07/24/24 05:35
BUN 16 mg/dl (7-17) 07/24/24 05:35
Glucose 92 mg/dl (70-99) 07/24/24 05:35
Calcium 9.7 mg/dl (8.4-10.2) 07/24/24 05:35
Vitamin B12 733 pg/ml (239-931) 07/23/24 05:38
Patient Allergies
No Known Allergies Allergy (Unverified 07/22/24 13:02)
Vital Signs and Labs
-
Vital Signs and Labs:
Vital Signs
Temp Pulse Resp BP Pulse Ox
36.7 C 86 18 171/86 100
07/24/24 15:44 07/24/24 15:44 07/24/24 15:44 07/24/24 15:44 07/24/24 15:44
Lab Results
07/24/24 05:35
07/24/24 05:35
Sodium 138 mmol/L (135-145) 07/24/24 05:35
Potassium 3.9 mmol/L (3.5-5.1) 07/24/24 05:35
BUN 16 mg/dl (7-17) 07/24/24 05:35
Glucose 92 mg/dl (70-99) 07/24/24 05:35
Calcium 9.7 mg/dl (8.4-10.2) 07/24/24 05:35
Vitamin B12 733 pg/ml (982-931) 07/23/24 05:38
Medications
-
Medications:
Generic Name Dose Route Start Last Admin
Trade Name Freq PRN Reason Stop Dose Admin
Acetaminophen 650 mg 07/22/24 19:39 07/24/24 13:01
Acetaminophen 325 Mg Tablet PO 08/19/24 19:38 650 mg
Q4HPRN PRN Administration
mild pain/HEADLEY/temp> 100.4F
Al Hydrox/Mg Hydrox/Simethicone 30 ml 07/22/24 19:39
Mag/Al/Simethicone Suspension 30 Ml Cup PO 08/19/24 19:38
Q6HPRN PRN
Heartburn
Amitriptyline HCl 10 mg 07/22/24 22:00 07/23/24 21:53
Amitriptyline 10 Mg Tablet PO 08/19/24 21:59 10 mg
HS LEISA Administration
Carbamazepine 100 mg 07/23/24 20:00 07/24/24 09:27
Carbamazepine 100 Mg Chewable Tablet PO 08/20/24 19:59 100 mg
BID LEISA Administration
Cholecalciferol 25 mcg 07/23/24 08:00 07/24/24 09:27
Cholecalciferol (Vitamin D3) 25 Mcg Tablet (1,000 Units) PO 08/20/24 07:59 25 mcg
DAILY LEISA Administration
Heparin Sodium 5,000 units 07/23/24 08:00 07/24/24 09:26
Heparin 5,000 Units/Ml 1 Ml Vial SC 08/20/24 07:59 5,000 units
Q12 LEISA Administration
Hydralazine HCl 5 mg 07/24/24 11:25
Hydralazine 20 Mg/Ml Vial IV 08/21/24 11:24
Q6HPRN PRN
SBP > 180
Sodium Chloride 1,000 mls @ 50 mls/hr 07/22/24 19:39 07/24/24 13:01
Nss IV 1,000 mls
.Q20H LEISA Administration
Lamotrigine 150 mg 07/22/24 20:00 07/24/24 09:26
Lamotrigine 100 Mg Tablet PO 08/19/24 19:59 150 mg
BID LEISA Administration
Ondansetron HCl 4 mg 07/22/24 19:39
Ondansetron 4 Mg/2 Ml Vial IV 08/19/24 19:38
Q6HPRN PRN
nausea and vomiting
Oxycodone HCl 5 mg 07/22/24 19:39
Oxycodone 5 Mg Regular Release Tablet PO 08/05/24 19:38
Q4HPRN PRN
moderate pain
Sodium Chloride 0 flush 07/22/24 20:00 07/22/24 21:19
Sodium Chloride 0.9% (Flush) Syringe IV 08/19/24 19:59 1 flush
PER PROTOCOL LEISA Administration
Home Medications
-
Home Medications
amitriptyline 10 mg tablet 10 mg PO HS 07/22/24
cholecalciferol (vitamin D3) 25 mcg (1,000 unit) tablet (Vitamin D3) 25 mcg PO DAILY 07/22/24
gabapentin 300 mg capsule 300 mg PO TID 07/22/24
lamotrigine 100 mg tablet 150 mg PO BID 07/22/24
therapeutic multivitamin 1 tab PO DAILY 07/22/24
--- NOTE | 2024-07-24 18:04 | EEGC.RPT ---
Continuous EEG Report
Recording
Start Date of Data Reviewed: 07/24/24
End Date of Data Reviewed: 07/24/24
Report
TECHNICAL REMARKS:��This is a technically satisfactory eighteen channel record employing 21 disc electrodes applied according to a measured international 10-20 electrode placement system.��There were no significant technical difficulties.��The study
was done on a [employer] System.
�
CLINICAL HISTORY:�This is an 78-year-old woman with encephalopathy. This study was requested to look for epileptiform activity.
MEDICATIONS: Tegretol, Lamictal
STUDY DURATION: 24 min, 35 sec
�
REPORT: �At the onset of the EEG, the patient is awake. The background activity consists of 9-9.5 Hz, persistent, posteriorly dominant, moderate in amplitude, symmetric, and rhythmic activity that is reactive to eye-opening with admixed 10-15
microvolts delta activity.� Anteriorly, it consists of a mixture of symmetric and rhythmic 5-10 microvolts, 15-20 beta activity, as well as central 6-7 Hz 10-20 microvolts theta activity. Intermittent generalized 5-6 Hz 10-20 microvolts activity
lasting for 1-1.5 seconds during wakefulness is present. Stepwise intermittent photic stimulation (1-31 Hz) did not induce any additional abnormalities. Drowsiness is characterized by low amplitude mixed frequency activity, decreased eye blinking,
and muscle artifact.
�
IMPRESSION: �This is an abnormal awake and drowsy EEG due to a mild generalized slowing. This finding indicates a mild encephalopathy that is not specific to etiology.� No epileptiform activity was seen.� If the clinical picture warrants, a
sleep-deprived awake and sleep record may be helpful.
[2024-07-24] MEDS: ELAVIL 10 MG PO (21:16)
[2024-07-24 23:42] VITALS: BP 148/73
--- NOTE | 2024-07-25 02:46 | DOWNTIME ---
There was a [employer] Client Assistant Branch Manager Downtime on 07/25/2024 from 0100 to 07/25/2023 at 0235 . Downtime documentation of patient's care, including medication administrations, has been reconciled in the electronic record per guidelines. Refer to the
patient's paper chart under the miscellaneous tab to see printed paper medication records and downtime forms.
[2024-07-25 06:25] LABS: % Basophils 1.5 % (0-2); % Immature Granulocytes 0.3 % (0-0.5); % Lymphocytes 35.2 % (20.5-51.1); % Monocytes 13.7 % (1.7-9.3); % Neutrophils 47.3 % (42.2-75.2); Absolute Basophils 0.1 10^3/uL (0-0.2); Absolute Eosinophils 0.1 10^3/uL (0-0.7); Absolute Lymphocytes 1.2 10^3/uL (1.2-3.4); Absolute Monocytes 0.5 10^3/uL (0.1-0.6); Absolute Neutrophils 1.6 10^3/uL (1.4-6.5); Hematocrit 38.1 % (37.0-47.0); Hemoglobin 12.3 g/dL (12.0-16.0); Mean Corp Hgb Conc. 32.3 g/dL (33.0-37.0); Mean Corpuscular Hgb 31.9 pg (27.0-31.0); Mean Corpuscular Volume 98.7 fL (81.0-99.0); Mean Platelet Volume 9.3 fL (7.4-10.4); Nucleated Red Blood Cells % 0 %; Platelet Count 200 10^3/uL (130-400); Red Blood Cell Count 3.86 10^6/uL (4.20-5.40); Red Cell Dist. Width 12.7 % (11.5-14.5); White Blood Cell Count 3.4 10^3/uL (4.8-10.8)
[2024-07-25 07:03] LABS: Blood Urea Nitrogen 13 mg/dl (7-17); Calcium 9.8 mg/dl (8.4-10.2); Carbon Dioxide 36 mmol/L (22-30); Chloride 99 mmol/L (98-107); Estimated Creatinine Clearance 34 ml/min; Glucose 88 mg/dl (70-99); Potassium 3.6 mmol/L (3.5-5.1); Sodium 134 mmol/L (135-145); eGFR > 60.00
[2024-07-25 07:22] VITALS: BP 158/70
[2024-07-25] MEDS: NSS 1000 IV (09:28)
[2024-07-25] MEDS: HEPARIN 5000 UNITS SC (09:29)
[2024-07-25] MEDS: VITAMIN D3 (cholecalciferol) 25 MCG PO (09:30)
[2024-07-25] MEDS: LAMICTAL 150 MG PO (09:30)
[2024-07-25] MEDS: TEGRETOL CHEWABLE 100 MG PO (09:30)
--- NOTE | 2024-07-25 11:23 | W.PN.HOSP.TC ---
Addendum entered and electronically signed by David Montejo DO 07/25/24 15:09:
Patient declined SNF. Talk to and will discharge home with home care. to pick patient up at 5:30 PM
37 minutes were utilized in discharge planning and preparation, arranging outpatient care, communication with family and medical staff
Original Note:
Today's Communication/Plan
-
Discontinue gabapentin
Continue with carbamazepine for trigeminal neuralgia
IDDS 5 diet and nutritional shakes
SNF planning
Assessment / Plan
Assessment / Plan
#Acute encephalopathy
-Suspect drug-induced from gabapentin which was initiated on 07/20/2024
-Head CT negative for ICH or mass effect; no obvious focal neurological deficits on exam
-Metabolic workup including B12, thyroid function testing were within normal limits
-Gabapentin was held on arrival, has improved since discontinuation
-Hold sedating agents and trend MSE
-As of 07/24 was AAOx3 to 4, close to baseline
#Severe trigeminal neuralgia
-Home regimen includes Lamictal, amitriptyline, gabapentin (just added)
-Was resumed on Lamictal and amitriptyline on arrival; gabapentin held
-Mental status has improved with holding gabapentin, AAOx4 this morning
-Consulted neurology, started carbamazepine 100 mg chewable twice daily
-May require CN V decompression if symptoms worsen, can follow-up OP
#Acute hypoxemic respiratory insufficiency
-Currently on 2-3 L oxygen with SpO2 in near 100%
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
-Resolved without medical intervention
#Dehydration
-Seems to be improving with IV fluid
-Patient eating and drinking as well, tolerated full breakfast
#Lymphangioleiomyomatosis
#H/O PTX
-Status post pleurodesis, outpatient follow-up
#Primary hyperparathyroidism
-Calcium was elevated on arrival though now WNL after fluid
-Trend BMP
#COPD
-Noted per history; Home medications do not include any inhalers or nebulizer
-No recent PFTs available to review, last CT without emphysematous changes
#Left knee osteoarthritis
-Tylenol as needed
#Severe protein calorie malnourishment
-BMI 14.2; likely due to to chronic trigeminal neuralgia/TMJ related pain affecting her eating
-Will start Ensure with meals, suspect modified diet may improve intake
-OP follow-up with brass molder helper, continue with Ensure and modified diet
DVT prophylaxis: Lovenox
Diet: IDDSI 5 per COURT WORKER team
DNR confirmed with upon admission
Anticipated Discharge: Within 24 hours
Subjective/Interval History
-
Date of Service: July 25, 2024
Seen and examined at the bedside. No acute events reported overnight. AFVSS this morning on room air
She seems close to baseline, remains AO x 3 to 4 with some hesitancy.
Denies any new complaints this morning. No significant trigeminal neuralgic pain nor TMJ pain today
Objective Data
-
Labs:
Laboratory Results
07/25/24
05:47
WBC 3.4 L
Hgb 12.3
Hct 38.1
Plt Count 200
Sodium 134 L
Potassium 3.6
Chloride 99
Carbon Dioxide 36 H
BUN 13
Creatinine 0.7
Glucose 88
Calcium 9.8
Vital Signs:
Vital Signs
Temp Pulse Resp BP Pulse Ox
98.5 F 81 20 158/70 93
07/25/24 07:22 07/25/24 07:22 07/25/24 07:22 07/25/24 07:22 07/25/24 10:03
I&O
07/24/24 07/25/24 07/26/24
06:59 06:59 06:59
Intake Total 760 / 760 720 / 720
Balance 760 / 760 720 / 720
Review of Systems
-
History Source: Patient
All other systems: Reviewed and negative
Physical Exam
-
General: Well Developed, No Apparent Distress, Appears Chronically Ill and Cachectic
HEENT: Normocephalic, Atraumatic, Moist Mucous Membranes and Anicteric
Respiratory: Clear to Auscultation and Non Labored Respirations
Cardiac: Regular Rhythm and S1/S2; Negative Murmur, Rub or Gallop
GI: Soft, Nontender, Nondistended and Normal Bowel Sounds
Musculoskeletal: No Clubbing, No Cyanosis and No Edema
Skin: Warm, Dry and Normal Turgor; Negative Rash
Neuro: AO x 3 and Nonfocal/Grossly Intact; Negative Tremors
Psych: Calm
Data Reviewed
-
Labs: Labs Reviewed by me and Discussed with Patient
[2024-07-25 11:48] VITALS: BP 157/97; PULSE 80; O2SAT 96
--- NOTE | 2024-07-25 13:23 | VNURNOTE ---
Home Health Liaison met with patient at bedside to discuss [facility] nurse/therapy, visits, schedule and homebound status. Patient is agreeable and understands that visits at home will be 2-3 x per week to assess and teach medical management. Patient is
aware that [facility] will contact them for start of care in 1-2 days after discharge from . Commode and RW to be provided prior to DC. Arranged by CM and PT.
[facility] referral completed in Care Port.
--- NOTE | 2024-07-25 14:40 | CM ---
Repeat PT this am showed pt had improvement.
MD spoke with . This CM spoke with Edgar . Reviewed PT with .
Pt refusing SNF.
said he can pick pt up at 5:30 pm tonight .
He requested walker and commode . MD notified to provide scripts for DME.
Pt requested commode on delivery
Ronda Guajardo VN liaison set up [facility].
IMM reviewed with and pt.
Pt has and care givers in the home.
She has home oxygen from [employer]. Reminded to bring home oxygen to bring home.
PLAN Home with [facility]
--- NOTE | 2024-07-25 15:02 | W.DCSUMMARY ---
Discharge Summary
Discharge Data
Date of Admission: 07/22/24
Date of Discharge: 07/25/24
-
Pending Results: Yes
Additional Pending Results:
Lamictal level
Hospital Course
Discharging Physician : David Montejo DO
Disposition : Home with home care (VN, PT)
Principal Discharge diagnosis : Toxic metabolic encephalopathy secondary to gabapentin
Chronic Discharge diagnosis : COPD, trigeminal neuralgia, primary hyperparathyroidism, lymphangioleiomyomatosis with H/O PTX S/P pleurodesis, chronic malnutrition
Hospital Course : 78-year-old female that presented to the hospital with altered mental status after starting gabapentin for trigeminal neuralgia recently. High suspicion for sedating effects of gabapentin as main contributor to her mental status.
Gabapentin was held, she was treated supportively with IV fluids, avoidance of sedatives. Mental status improved with gabapentin held, initially AAO x 1 to 2 though by time of discharge was AAO x 4. Neurology evaluated patient and the hospitalist,
EEG was performed which showed generalized slowing but no signs of epileptiform activity. CT head was unremarkable for ICH or mass effect, other acute findings. Was started on carbamazepine 100 mg twice daily in addition to home lamotrigine and
amitriptyline for her trigeminal neuralgia. Neurology recommended outpatient follow-up with dentistry. Was evaluated by speech and swallow who recommended modified diet (IDDSI 5, minced and moist). Physical therapy evaluated patient and
recommended SNF for short-term rehab however patient declined and preferred home with visiting nurse and PT. Case management arranged for home services. Prescription for bedside commode and rolling walker were provided. Refill was sent for her
amitriptyline, new prescription sent for carbamazepine. Patient's states she had lamotrigine at home. Recommend follow-up with family doctor within 1 to 2 weeks of discharge from the hospital. Started ensures while in the hospital for her
severe malnutrition, recommend to continue Ensure twice daily after discharge
Important imaging findings :
Head CT 07/22/2024
IMPRESSION: No acute intracranial abnormality noted. Mild chronic senescent white matter changes. Moderate atrophy. Bilateral mastoid air cell opacity, right greater than left, as described. Although nonspecific, likely reflecting chronic mucosal
thickening and sterile reactive effusions as opposed to mastoiditis. Recommend clinical correlation.
MRI brain without contrast 07/23/2024
IMPRESSION: No acute intracranial abnormality noted. Moderate atrophy with sequelae of mild/moderate small vessel ischemic disease. The left superior cerebellar artery abuts the root entry zone of the left trigeminal nerve, possible neurovascular
conflict.. Recommend clinical correlation. Prominent bilateral mastoid effusions. Severe degenerative changes of the bilateral temporomandibular joints of the small effusion on the right.
EEG 07/24/2024
REPORT: At the onset of the EEG, the patient is awake. The background activity consists of 9-9.5 Hz, persistent, posteriorly dominant, moderate in amplitude, symmetric, and rhythmic activity that is reactive to eye-opening with admixed 10-15
microvolts delta activity. Anteriorly, it consists of a mixture of symmetric and rhythmic 5-10 microvolts, 15-20 beta activity, as well as central 6-7 Hz 10-20 microvolts theta activity. Intermittent generalized 5-6 Hz 10-20 microvolts activity
lasting for 1-1.5 seconds during wakefulness is present. Stepwise intermittent photic stimulation (1-31 Hz) did not induce any additional abnormalities. Drowsiness is characterized by low amplitude mixed frequency activity, decreased eye blinking,
and muscle artifact.
IMPRESSION: This is an abnormal awake and drowsy EEG due to a mild generalized slowing. This finding indicates a mild encephalopathy that is not specific to etiology. No epileptiform activity was seen. If the clinical picture warrants, a
sleep-deprived awake and sleep record may be helpful.
Procedure findings : N/A
Follow-up: Family doctor in 1 to 2 weeks from discharge. Should have consideration for palliative care
Discharge Plan
-
Patient Disposition: Home (Routine Discharge)
Discharge Diagnosis/Procedures: Toxic metabolic encephalopathy
Adverse response to gabapentin
Trigeminal neuralgia
Condition: Fair
Diet: Other diet
Additional Diets: Minced and moist diet
Start Ensure with meals twice daily
Activity: As tolerated
Driving Restrictions: Not until seen by your Dr
Bathing Restrictions: None
Blood Work: None
Others Tests: None
Other Services: VN, PT and OT
Activity Restrictions/Additional Instructions:
After discharge from the hospital schedule follow-up appointment with your family doctor. Should be seen in office within 1 to 2 weeks of discharge from the hospital.
Instructions: Mild cognitive impairment
Referrals:
Ishmael Colmenares MD [Family Provider] -
Additional Discharge Medication Instructions: Trigeminal neuralgia regimen: Carbamazepine 100 mg twice daily (new med), lamotrigine 150 mg twice daily, amitriptyline 10 mg nightly
Stop taking gabapentin
If you need further refills of your medications please speak to your family doctor
Prescriptions:
New
carbamazepine 100 mg Tablet,Chewable
100 mg PO BID 30 Days Qty: 60 0RF
Continued
therapeutic multivitamin Tablet
1 tab PO DAILY
lamotrigine 100 mg Tablet
150 mg PO BID
cholecalciferol (vitamin D3) [Vitamin D3] 25 mcg (1,000 unit) Tablet
25 mcg PO DAILY
amitriptyline 10 mg Tablet
10 mg PO HS 30 Days Qty: 30 0RF
Discontinued
gabapentin 300 mg Capsule
300 mg PO TID
Discharge Orders:
Discharge Patient (As Directed); Ordered 07/25/24
Ordered By: David Montejo
Discharge Date and Time
Print Language: TELUGU
[2024-07-25 15:47] VITALS: BP 136/74
== END 2024-07-25 16:26 | disposition home health service (06) | DRG 91 ==
LOC: 4 EAST ACU 18:25
PROVIDERS: ADMITTING PHYSICIAN Family Medicine; ATTENDING PHYSICIAN Internal Medicine; EMERGENCY PHYSICIAN Emergency Medicine; FAMILY PHYSICIAN Internal Medicine; OTHER PHYSICIAN Psychiatry & Neurology Neurology
DX: G92.8 Other toxic encephalopathy (principal); E43 Unspecified severe protein-calorie malnutrition; J84.81 Lymphangioleiomyomatosis; Z68.1 Body mass index [BMI] 19.9 or less, adult; J96.11 Chronic respiratory failure with hypoxia; R64 Cachexia; G50.0 Trigeminal neuralgia; T42.6X5A Adverse effect of other antiepileptic and sedative-hypnotic drugs, initial encounter; Y92.9 Unspecified place or not applicable; M81.0 Age-related osteoporosis without current pathological fracture; J44.9 Chronic obstructive pulmonary disease, unspecified; E21.0 Primary hyperparathyroidism; M19.90 Unspecified osteoarthritis, unspecified site; M17.12 Unilateral primary osteoarthritis, left knee; E86.0 Dehydration; E55.9 Vitamin D deficiency, unspecified; M26.643 Arthritis of bilateral temporomandibular joint; M26.69 Other specified disorders of temporomandibular joint; Z66 Do not resuscitate
CPT/HCPCS: 51701; 70450; 70553; 80048; 80053; 80175; 81003; 81015; 82607; 82805; 83605; 83735; 84443; 85025; 92526; 92610; 93005; 95816; 97163; 97167; 97530; 99285; A9575

== ENCOUNTER 2025-05-08 16:05 | Emergency (ER) | payer OTHER, SELFPAY ==
[2025-05-08 16:13] VITALS: BP 172/91
[2025-05-08 18:45] VITALS: BMI 14.7
[2025-05-08 18:46] VITALS: BP 167/100
[2025-05-08 19:15] VITALS: BP 185/91
[2025-05-08] MEDS: TRILEPTAL 150 MG PO (20:23)
[2025-05-08] MEDS: TYLENOL 650 MG PO (20:23)
--- NOTE | 2025-05-08 21:05 | ED.GENMED ---
History of Present Illness
General
Chief Complaint: Musculo-Skeletal Complaint
Source: patient, spouse and family
Exam Limitations: none
Time Seen by Provider: 05/08/25 19:13
Nursing documentation reviewed up to this point in time: agreed with
History of Present Illness
History of Present Illness:
Patient is an 79-year-old female with history of trigeminal neuralgia who presents to the emergency department with right hip pain following fall 2 days ago. Patient apparently suffered a fall on Tuesday evening. Her states that he believes
that she tripped and fell on the swivel chair in the living room in the middle of the night while she was going to the bathroom. She called out to him and he found her on the ground immediately following fall. It is unclear if she hit her head.
Patient was able to ambulate without difficulty yesterday however today appeared to have significant increase in pain in her right hip. She was unable to ambulate prompting visit to the emergency department.
Patient denies any headache or neck pain. No back pain. No numbness/tingling or weakness in lower legs.
Patient does suffer from trigeminal neuralgia and takes Trileptal twice daily.
Patient is not on any oral anticoagulation.
Past History
Past History
ED Past Medical History: Other (Chronic lung disease)
ED Past Surgical History: Other
Social History
Tobacco: Non-smoker
Alcohol: None
Drug: None
Personal:
Living: with family
Employment: Other
Family History
Family History: Other
Review of Systems
Review of Systems
Allergies reviewed?: Yes
All Other Systems: ROS reviewed and negative except as documented in HPI and ROS
Phy Exam
Physical Exam
Physical Exam:
Vitals: Hypertensive, otherwise vital signs stable. Afebrile
General: Patient is curled up in bed, sleeping
Skin: Warm and dry, no rashes or lesions
Head: Normocephalic, atraumatic
Eyes: Sclera nonicteric.
Throat: Protecting airway
Neck: Normal ROM, no cervical spine tenderness, no meningismus
Cardiac: Regular rate and rhythm, no murmurs.
Pulm: Normal respiratory effort. Lungs clear bilaterally
Abdomen: Nondistended
Back: No midline spinal tenderness
Extremities: Reproducible tenderness in posterior aspect of right hip without any obvious deformity. No tenderness in inguinal region. No tenderness in right knee or right ankle. Patient has full range of motion right hip with minimal discomfort.
2+ palpable DP pulses bilaterally
Neuro: AAOx3. CN II-XII intact. No focal neurologic deficits.
Psychiatric: Normal affect.
Course
Orders/Labs/Results
Orders:
Orders
05/08/25 16:20
Hip, Right 2-3 Views [CR Hip - RT w/wo Pel 2-3 Vw*] Urgent
Comment:
Reason For Exam: fall injury and pain
Include a pelvis x-ray?: Yes
05/08/25 19:33
CT Pelvis W/o Iv Contrast Urgent
Comment:
Reason For Exam: fall, right hip pain
Cervical Spine wo Contrast CT [CT Cervical Spine W/o Iv Contr] Urgent
Comment:
Reason For Exam: unwitnessed fall
Acetaminophen [Tylenol] 650 mg PO NOW STA
05/08/25 19:34
CT Head W/o Iv Contrast Urgent
Comment:
Reason For Exam: uwnitnessed fall
05/08/25 19:47
Oxcarbazepine [Trileptal] 150 mg PO NOW STA
Vital Signs
Initial and Last Documented VS:
Initial Vital Signs
Temp Pulse Resp BP Pulse Ox
97.7 F 85 18 172/91 97
05/08/25 16:13 05/08/25 16:13 05/08/25 16:13 05/08/25 16:13 05/08/25 16:13
Last Documented Vital Signs
Temp Pulse Resp BP Pulse Ox
98.1 F 87 16 185/91 97
05/08/25 19:15 05/08/25 19:15 05/08/25 19:15 05/08/25 19:15 05/08/25 21:05
MDM/Problems Addressed
Differential Diagnosis Includes:
Not limited to: Hip fracture, hip dislocation, pelvic fracture, contusion, muscle spasm, radicular pain, etc.
MDM/Problems Addressed:
79-year-old female presenting two days following mechanical fall at home with worsening right hip pain now unable to ambulate. Fall without any LOC. Vitals and physical exam as above. Patient appears chronically ill and uncomfortable. No evidence of
head or neck trauma. She does have tenderness at posterior aspect of right hip without any obvious deformity of RLE or vascular compromise. She has pretty decent range of motion in right hip with minimal pain.
Initial x-ray obtained in triage shows no evidence of acute fracture.
Given known trauma and inability to ambulate � will obtain CT pelvis to rule out occult fracture. Will also check CT head/ cervical spine to r/o other acute post traumatic injuries.
Will give Tylenol and lidocaine patch.
Update: CT scans without evidence of post-traumatic injury. There is no evidence of fracture.
Offered patient admission/discussed placement given ambulatory dysfunction however both patient and her family would much prefer discharge home. They said she now has 24 hour home nursing care. She was able to get up and ambulate in department using
a walker.
She has a history of trigeminal neuralgia and take trileptal twice daily. She seems relatively drowsy from this medication and did discuss with patient that I do not recommend additional sedating medication.
She will be discharged home with strict return precautions. Advised Tylenol, lidocaine patches. Patient and family comfortable with plan.
Chronic conditions affecting care:
Trigeminal neuralgia
Acute Exacerbation and/or Progression of Chronic Illness:
N/A
*Radiology
Radiology exam reviewed: radiology read reviewed
*Pulse Oximetry
SaO2: 97
Nasal Cannula flow liters per minute: 2
Oxygen Mode of Delivery: Room air
Patient hypoxic: no
*EKG
Interpreted by ED Provider?: NA
*Heel Finisher Interpretation
Rate: Heel Finisher- N/A
*Critical Care Note
Total Time (30-74mins, 75-104mins- exclusive of procedures): Not Applicable
ED Attending Note
-
Portions of this chart may have been created with voice recognition software.� Occasional wrong word or��sound alike� substitutions may have occurred due to the inherent limitations of voice recognition software.
Discharge Plan
Departure
Patient Disposition: Home (Routine Discharge)
Date of Disposition: 05/08/25
Time of Disposition: 21:43
Patient with high blood pressure during this ER visit?: Yes
Condition: Good
Discharge Problem:
Fall, Pain in right hip
Instructions: Hip pain - ED (DC), BLOOD PRESSURE, Fall Prevention for Older Adults
Prescriptions:
No Action
therapeutic multivitamin Tablet
1 tab PO DAILY
cholecalciferol (vitamin D3) [Vitamin D3] 25 mcg (1,000 unit) Tablet
25 mcg PO DAILY
oxcarbazepine [Trileptal] 150 mg Tablet
150 mg PO BID
lidocaine [Lidoderm] 5 % Adhesive Patch,Medicated
1 patch TOPICAL BID
Patient Comments:
applies to L face and now applied to L hip today
vitamin [id number]
1 tab PO MOWEFR
Referrals:
Ishmael Colmenares MD [Family Provider, Internal Medicine] - Follow up in 5-7 days
Activity Restrictions/Additional Instructions:
RETURN TO THE EMERGENCY DEPARTMENT WITH ANY INTRACTABLE PAIN, NUMBNESS/TINGLING OR WEAKNESS IN LOWER EXTREMITIES, LOSS OF BOWEL/BLADDER CONTROL, REPEAT FALLS OR INABILITY TO AMBULATE, WORSENING IN CURRENT SYMPTOMS, OR ANY OTHER CONCERNS
- As discussed�the imaging of your pelvis, head, and cervical spines with no evidence of acute traumatic injuries.
- Please continue to take all medications as prescribed. You can apply topical lidocaine patches to your right hip. You can take Tylenol and/or Motrin as needed for persistent pain.
- Follow-up with your primary care provider for further evaluation/management to ensure that your symptoms are improving
Monitor your symptoms closely and return to the emergency department with any acute worsening/new symptoms or any other concerns
Interventions
Interventions:
*Risk Screen - Suicide Last Done: 05/08/25 16:13
*General Assessment Last Done: 05/08/25 22:00
*Neglect/Abuse Screening Last Done: 05/08/25 22:00
*ED COVID-19 Vaccine History Last Done: 05/08/25 22:00
*ED Influenza Vaccine History Last Done: 05/08/25 22:00
[facility] Risk Assessment Tool Last Done: 05/08/25 18:45
*Nursing Disposition Last Done: 05/08/25 22:00
ED-Musculoskeletal Assessment Last Done: 05/08/25 18:56
Discharge Date and Time
Discharge Date/Time: 05/08/25 22:16
Print Language: UKRAINIAN
== END 2025-05-08 22:16 | disposition home or self-care (01) ==
LOC: EMR 16:05
PROVIDERS: EMERGENCY PHYSICIAN Emergency Medicine; FAMILY PHYSICIAN Internal Medicine
DX: M25.551 Pain in right hip (principal); R03.0 Elevated blood-pressure reading, without diagnosis of hypertension; G50.0 Trigeminal neuralgia; W19.XXXA Unspecified fall, initial encounter; Y92.009 Unspecified place in unspecified non-institutional (private) residence as the place of occurrence of the external cause
CPT/HCPCS: 99284; 70450; 72125; 72192; 73502